=== PATIENT | male | born 2000 | race Caucasian/White ===

== ENCOUNTER 2022-09-07 17:23 | Emergency (ER) | payer OTHER, SELFPAY ==
--- NOTE | ~2022-09-07 | US_ITS ---
EXAMINATION: US scrotum doppler DATE: 09/07/2022 18:23 INDICATION: Hit in scrotum with ball. Pain. TECHNIQUE: Grayscale and Doppler ultrasound images of the testes were obtained. COMPARISON: None. FINDINGS: The right testis measures 5.6 x 2.4 x 3.6 cm. The left testis measures 5.8 x 2.5 x 3.5 cm. There is vascular flow to both testes. There is a peripheral 7 x 6 x 3 mm hypoechoic mass in the righ t testis without internal vascular flow on color Doppler. The right epididymis is normal with normal vascular flow. The left epididymis is normal with normal vascular flow. There is no varicocele or hyd rocele. IMPRESSION: 1. 7 mm peripheral mass in right testis. The differential diagnosis includes hematoma, neoplasm, an d epidermoid cyst. Reviewed, dictated and finalized at location A. ING OPERATOR IMPRESSION: 1. 7 mm peripheral mass in right testis. The differential diagnosis includes hematoma, neoplasm, and epidermoid cyst.
[2022-09-07 17:50] VITALS: BP 137/74; PULSE 89; RESP 16; TEMP 37.2; O2SAT 99
--- NOTE | 2022-09-07 20:11 | ED.GENADULT ---
HPI - General Adult General Chief complaint: Urogenital-Male <Lina Marino PA-C - Last Filed: 09/08/22 02:10> Stated complaint: testicle injury <Lina Marino PA-C - Last Filed: 09/08/22 02:10> Time Seen by Provider: 09/07/22 20:05 <Lina Marino PA-C - Last Filed: 09/08/22 02:10> History of Present Illness HPI narrative: 21-year-old male here for evaluation of testicular pain and swelling for the past several hours after getting struck in the right testicle by a softball. Patient has not taken any medicine for pain. He decided to be evaluated in urgent care when he had an episode of hematuria, nausea and vomiting shortly after the injury. The symptoms have since resolved but he just reports continued pain. He was sent here from an urgent care to rule out torsion. No abdominal pain, fevers, scrotal bruising. <GRANT Francois Last Filed: 09/08/22 02:10> Related Data Allergies/adverse reactions: Allergies Allergy/AdvReac Type Severity Reaction Status Date / Time No Known Allergies Allergy Verified 09/07/22 20:18 <Lina Marino PA-C - Last Filed: 09/08/22 02:10> Review of Systems Review of Systems: Gen: Denies fevers or chills Eyes: Denies eye pain or visual change ENT: Denies congestion Respiratory: Denies shortness of breath or cough CV: Denies chest pain or palpitations GI: Denies abdominal pain nausea, emesis or diarrhea reports testicular pain. Reports hematuria, resolved. Denies burning, urgency, frequency Musculoskeletal: Denies back pain or muscle pain Neuro: Denies numbness, tingling, weakness or focal weakness Skin: Denies rash Except as documented, all other systems reviewed and negative <GRANT Francois Last Filed: 09/08/22 02:10> Exam Narrative: APPEARANCE: Well appearing, no pain in distress, well-nourished. Head: Normocephalic and atraumatic. EYES: PERRLA/EOMI, conjunctivae clear NOSE: No nasal drainage EARS: External ear normal in appearance THROAT: Oropharynx is clear. Mucous membranes are moist. NECK: Supple. No adenopathy, no masses. RESPIRATORY: Airway patent, respirations nonlabored. Clear to auscultation bilaterally, no rales, rhonchi, wheezing. CARDIOVASCULAR: Regular rate and rhythm without murmurs, rubs, or gallops. ABDOMINAL: Normoactive bowel sounds. Soft, nontender, nondistended. No rebound tenderness or guarding. MUSCULOSKELETAL: Extremities are warm and well-perfused. Moves all extremities well. No edema. : No gross deformities noted to penis or scrotum. Testicles are nontender to palpation. NEURO: Normal speech. No focal neurologic deficits. SKIN: Skin is warm and dry. No rashes. PSYCHIATRIC: Normal affect/mood. <Lina Marino PA-C - Last Filed: 09/08/22 02:10> Course PERSONAL VEHICLE ADVISOR/PA Physician Supervision For this patient encounter, I reviewed the PERSONAL VEHICLE ADVISOR or PA documentation, treatment plan, and medical decision making <King Garcia MD - Last Filed: 09/08/22 04:52> Consultations Consultation #1: Spoke with Dr. Harden, urology, recommends scrotal support, Tylenol, and low threshold for return to ED. She discussed with radiologist who confirmed tunica is intact. Recommends outpatient f/u, no vigorous activity or sexual activity. <Lina Marino PA-C - Last Filed: 09/08/22 02:10> Date: 09/07/22 <Lina Marino PA-C - Last Filed: 09/08/22 02:10> Time: 21:09 <Lina Marino PA-C - Last Filed: 09/08/22 02:10> Vital Signs Vital signs: Vital Signs Temperature 98.9 F 09/07/22 17:50 Pulse Rate 89 09/07/22 17:50 Respiratory Rate 16 09/07/22 17:50 Blood Pressure 137/74 09/07/22 17:50 Pulse Oximetry 99 09/07/22 17:50 Oxygen Delivery Room Air 09/07/22 17:50 Temperature 98.9 F 09/07/22 17:50 Pulse Rate 89 09/07/22 17:50 Respiratory Rate 16 09/07/22 17:50 Blood Pressure 137/74 09/07/22 17:50 Pulse Oximet
[2022-09-07] MEDS: ACETAMINOPHEN 500 MG TABLET 1000 MG PO (20:13)
[2022-09-07 20:31] LABS: Basophils Absolute Auto 0.1 K/mm3 (0.0-0.1); Basophils Percent Auto 0.9 % (0.2-1.2); Eosinophils Absolute Auto 0.1 K/mm3 (0-0.3); Eosinophils Percent Auto 0.9 % (0-4.4); Hematocrit 48.6 % (42.0-52.0); Hemoglobin 17.1 g/dL (14.0-18.0); Immature Granulocyte Absolute 0.02 K/mm3 (0.00-0.031); Immature Granulocyte Percent A 0.3 % (0-0.5); Lymphocytes Absolute Auto 2.15 K/mm3 (0.9-3.2); Lymphocytes Percent Auto 27.4 % (18.3-44.2); Mean Corpuscular HGB Conc 35.2 g/dl (32-36); Mean Corpuscular Hemoglobin 31.7 pg (26-34); Mean Corpuscular Volume 90.2 fl (80-100); Mean Platelet Volume 9.9 fl (7.4-10.4); Monocytes Absolute Auto 0.9 K/mm3 (0.1-0.6); Monocytes Percent Auto 11.2 % (2.6-8.5); Neutrophils Absolute Auto 4.7 K/mm3 (1.3-6.7); Neutrophils Percent Auto 59.3 % (45.5-73.1); Platelet Count Result 215 k/mm3 (150-375); Red Blood Count 5.39 M/mm3 (4.6-6.20); White Blood Count 7.9 K/mm3 (4.5-10.0)
[2022-09-07 20:37] LABS: Appearance Urine Clear (Clear); Bilirubin Urine 1+ (Negative); Blood Urine Negative (Negative); Color Urine Yellow (Yellow); Glucose Urine UA 2+ mg/dL (Negative); Ketones Urine 3+ mg/dL (Negative); Leukocyte Esterase Ur Negative LEU/UL (Negative); Nitrate Urine Negative (Negative); Protein Urine 1+ mg/dL (Negative); Specific Grav Ur 1.015 (1.001-1.035)
[2022-09-07 20:40] LABS: Add Urine Microscopic? YES; Mucus Urine Rare /lpf; RBC Urine 0-2 /hpf (0-2); WBC Urine 0-3 /hpf
[2022-09-07 20:42] LABS: Alanine Aminotransferase 21 U/L (6-50); Albumin Level 4.8 g/dL (3.5-5.1); Alkaline Phosphatase 81 U/L (38-126); Anion Gap 15 mmol/L (8-16); Aspartate Amino Transferase 26 U/L (17-59); Bilirubin,Total 1.5 mg/dL (0.2-1.3); Blood Urea Nitrogen 14 mg/dL (9-20); Calcium 9.3 mg/dL (8.4-10.2); Carbon Dioxide 29 mmol/L (22-30); Chloride 95 mmol/L (98-107); Estimated CRCL calculation 117 ml/min; Estimated Glomerular Filt Rate > 60; Glucose 63 mg/dL (65-110); Potassium 3.6 mmol/L (3.4-5.0); Sodium 139 mmol/L (137-145)
== END 2022-09-07 21:18 | disposition home or self-care (01) ==
PROVIDERS: Physician Assistant; Emergency Provider Emergency Medicine
DX: S30.22XA Contusion of scrotum and testes, initial encounter (principal); W21.07XA Struck by softball, initial encounter; Y93.64 Activity, baseball
CPT/HCPCS: 36415; 76870; 80053; 81001; 85025; 93976; 99284; A9270

== ENCOUNTER 2024-01-04 11:56 | Emergency (ER) | payer OTHER, SELFPAY ==
[2024-01-04 12:07] VITALS: BP 140/81; PULSE 106; RESP 16; TEMP 36.5; O2SAT 99
--- NOTE | 2024-01-04 12:18 | ED.URI ---
HPI - URI/Sore Throat General Chief Complaint: Upper Respiratory Infection Stated Complaint: EARACHE/SINUS CONGESITON/SORE THROAT Time Seen by Provider: 01/04/24 12:19 History of Present Illness HPI Narrative: 23 y/o male with a history of DM 1 presented for c/o left ear pain x2 days and sinus congestion and drainage, sore throat x1 day. Not taking anything for symptoms. Denies shortness of breath, wheezing nausea, vomiting, diarrhea, fevers or chills. He just returned from spring vacation. Related Data Home Medications Medication Instructions Recorded Confirmed insulin lispro-aabc 100 unit/mL 01/04/24 subcutaneous solution (Lyumjev U-100 Insulin) Allergies Allergy/AdvReac Type Severity Reaction Status Date / Time No Known Allergies Allergy Verified 09/07/22 20:18 Review of Systems Review of Systems: CONSTITUTIONAL: Denies body aches, fever, chills, or sweats. EYES: Denies visual changes, redness, or discharge. ENT: Reports rhinorrhea, congestion, sore throat, otalgia. CARDIOVASCULAR: Denies chest pain, palpitations, or edema. RESPIRATORY: Denies dyspnea. GASTROINTESTINAL: Denies abdominal pain, nausea, vomiting, or diarrhea. SKIN: Denies rash, itching, or wounds. MUSCULOSKELETAL: Denies back pain, joint pain, or myalgia. NEUROLOGIC: Denies headache PMFSH Past Medical History Medical History (Updated 01/04/24 @ 12:53 by Jackie Altamirano, SUPPORT SERVICES TECH) DM type 1 (diabetes mellitus, type 1) Exam Narrative: GENERAL: Mildly ill-appearing, no acute distress. EYES: conjunctivae clear ENT: Mucous membranes moist. TMs unable to visualize bilaterally due to cerumen impaction; no tragal tenderness. Oropharynx erythematous without lesions. Tonsils not enlarged and without exudate. No drooling, no hoarseness, no trismus, uvula midline. No tripod positioning, hot potato voice, or soft palate swelling. NECK: Supple. No lymphadenopathy CHEST: Clear to auscultation, breath sounds equal. No respiratory distress, speaks in full sentences. HEART: Regular rate and rhythm. No murmur heard. SKIN: Warm, dry, no rash. NEURO: Alert and oriented x3. Course Course Emergency Course: Patient is aware of diagnosis, understands and agrees to treatment plan. Anticipatory guidance given. Patient agrees to follow-up as directed and is aware of reasons to seek care at the emergency department. Portions of this record may have been created with voice recognition software Level of Care: Express Care Visit Vital Signs Vital signs: Vital Signs Temperature 97.7 F 01/04/24 12:07 Pulse Rate 106 H 01/04/24 12:07 Respiratory Rate 16 01/04/24 12:07 Blood Pressure 140/81 01/04/24 12:07 Pulse Oximetry 99 01/04/24 12:07 Temperature 97.7 F 01/04/24 12:07 Pulse Rate 106 H 01/04/24 12:07 Respiratory Rate 16 01/04/24 12:07 Blood Pressure 140/81 01/04/24 12:07 Pulse Oximetry 99 01/04/24 12:07 Procedures Ear Wax Removal Left Ear: Ear Wax Removal Date: 01/04/24 Cerumenolytic Used: other (Equal parts warm water hydrogen peroxide) Results: Re-examined: some cerumen remains TM Examination: other (unable to visualize) Ear Canal Exam: atraumatic Patient Tolerated Procedure: well and no complications Technique: ear canal irrigated and ear canal curetted Additional Comments: Large amount of cerumen removed from left canal. Pt unable to tolerate further removal of cerumen near TM due to pain. MDM - URI/Sore Throat MDM Narrative Medical decision making narrative: Neg flu, covid, and strep result reviewed with pt. Pt tolerated partial cerumen removal, but unable to tolerate remainder due to pain. Pt will use otc debrox or hydrogen peroxide at home in attempt to soften the wax. Advise supportive treatments, and if ear pain worsens he will start abx as he has no pcp for f/u. Patient is appropriate for outpatient treatment. Different
== END 2024-01-04 12:55 | disposition home or self-care (01) ==
PROVIDERS: Emergency Provider Nurse Practitioner Family
DX: J06.9 Acute upper respiratory infection, unspecified (principal); H61.23 Impacted cerumen, bilateral; Z20.822 Contact with and (suspected) exposure to COVID-19; E10.9 Type 1 diabetes mellitus without complications
CPT/HCPCS: 69210; 87081; 87426; 87804; 87880; 99213; G0463